=== PATIENT | male | born 1960 | race Caucasian/White ===

== ENCOUNTER → 2021-08-06 | Outpatient (CLI) | payer OTHER ==
[~2021-08-06] MED LIST: MOBIC15 MG PO; PROTONIX40 MG PO; ZESTORETIC 20-1 EAC1 PO
[2021-08-06 11:30] LABS: BUN/CREATININE RATIO 15 (0-10)
[2021-08-06 12:18] LABS: RED BLOOD COUNT 4.51 M/UL (4.20-5.50); WHITE BLOOD COUNT 8.1 K/UL (4.5-11.0)
== END ==
LOC: OPSV2 09:55 → EDSTATUS 10:00 → OPSV2 10:00
PROVIDERS: Orthopaedic Surgery
DX: Z01.818 Encounter for other preprocedural examination (principal); M17.11 Unilateral primary osteoarthritis, right knee
CPT/HCPCS: 80048; 85025; 93005

== ENCOUNTER → 2021-08-18 | Outpatient (CLI) | payer OTHER ==
[2021-08-18 13:07] LABS: BUN/CREATININE RATIO 16 (0-10)
== END ==
LOC: LAB 11:25
PROVIDERS: Orthopaedic Surgery
DX: Z01.812 Encounter for preprocedural laboratory examination (principal)
CPT/HCPCS: 36415; 80048; 86850; 86900; 86901

== ENCOUNTER 2021-08-19 06:13 | Day surgery (SDC) | payer OTHER ==
[~2021-08-19] VITALS: Ht 175.3 cm; Wt 117.5 kg
--- NOTE | 2021-08-19 15:53 | NUR ---
1330: ON ARRIVAL TO FLOOR, PATIENT HAS KNEE HIGH ALFONZO HOSE ON LEFT EXTREMITY, POLAR ICE INTACT TO RIGHT KNEE, KNEE HIGH SCUD TO LEFT LOWER EXTREMITY, NEURO CHECK WNL. 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
[2021-08-20] MEDS ORDERED: ASPIRIN 325MG325 MG PO (10:23)
--- NOTE | 2021-08-20 12:02 | NUR ---
1200: PATIENT CONTINUES TO WEAR ALFONZO HOSE AND KNEE HIGH SCUD TO LEFT LEG. ZERO GRAVITY FOAM IN PLACE. WEARING POLAR ICE CONTINUOUSLY, NEURO CHECKS WNL DOCUMENTED, PULLING 2500 ON IS! AND PERFORMING EVERY HOUR INSTRUCTED.
[2021-08-20] MEDS ORDERED: HYDROCODON-ACE1 EAC6 PO (12:11)
== END 2021-08-20 13:40 | disposition home health service (06) ==
LOC: OR 06:13 → EDSTATUS 11:15 → M/S 13:02 → OR 08-20 13:40
DX: M17.11 Unilateral primary osteoarthritis, right knee (principal); I10 Essential (primary) hypertension; Z79.82 Long term (current) use of aspirin
CPT/HCPCS: 73560; 76000; 97110-GP-CQ; 97116-GP-CQ; 97161; 97166; 97535; C1776; J0690; J1100; J1170; J1885; J2250; J2405; J2704; J2795; J3010; J7120